=== PATIENT | male | born 1945 | race Caucasian/White ===

== ENCOUNTER → 2020-11-22 13:52 | Outpatient (BNVA) | payer MEDICARE, SELFPAY | PROVIDERS: PCP Family Medicine; Visit Provider Urology | DX: N40.1 Benign prostatic hyperplasia with lower urinary tract symptoms (principal); N39.0 Urinary tract infection, site not specified; N13.8 Other obstructive and reflux uropathy; R33.9 Retention of urine, unspecified | CPT/HCPCS: Q3014 ==

== ENCOUNTER → 2021-06-20 08:34 | Outpatient (BNVA) | payer MEDICARE, SELFPAY | PROVIDERS: PCP Family Medicine; Visit Provider Urology | DX: N40.1 Benign prostatic hyperplasia with lower urinary tract symptoms (principal); N13.8 Other obstructive and reflux uropathy; R33.9 Retention of urine, unspecified; N39.0 Urinary tract infection, site not specified | CPT/HCPCS: 51798; 99212 ==

== ENCOUNTER 2021-07-31 06:49 | Day surgery (SDC) | payer MEDICARE, SELFPAY ==
[2021-07-26 12:55] VITALS: BMI 32.3
[2021-07-27 15:23] VITALS: BMI 30.8
--- NOTE | 2021-07-28 10:21 | HO.ANESPROP2 ---
Documented by User: Bhumi Burns NP 07/28/21 10:21 HPI - Anesthesia Eval Consult details Narrative: 76yo M for Laser Ablation Prostate w/Green Light PMFSH Active Problems Active Problems: All Active Problems (Updated 07/27/21 @ 15:02 by Perla Morales, RN) BPH w urinary obs/LUTS (Acute) Incomplete emptying of bladder due to benign prostatic hyperplasia (Acute) Recurrent UTI (urinary tract infection) (Acute) Past Medical History Medical History Benign prostatic hyperplasia with lower urinary tract symptoms Incomplete emptying of bladder Nocturia Recurrent UTI Weak urinary stream Surgical History Surgical History No history of previous surgery Social History Social History Patient Tobacco Use Status: Never used Tobacco Use of substances other than those prescribed or required for medical reasons: No Are you DNR?: No Advance Directives: No Advance Directives Information Provided: No Advance Directives on File: No Meds Allergies Allergy/AdvReac Type Severity Reaction Status Date / Time No Known Allergies Allergy Verified 07/27/21 15:03 Home Medications Medication Instructions Recorded Confirmed Last Taken Type cefadroxil 500 mg capsule 500 mg PO BID 11/22/20 07/27/21 Unknown History Exam Exam Date and Time: July 28, 2021 1021 Height,Weight and Vital Signs: Height 5 ft 10 in Weight 97.522 kg Assessment and Plan Assessment Anesthesia Assessment: Chart Reviewed Documented by User: Jeni Kendrick MD 07/31/21 08:13 PMFSH Past Medical History Medical History Benign prostatic hyperplasia with lower urinary tract symptoms Incomplete emptying of bladder Nocturia Recurrent UTI Weak urinary stream Surgical History Surgical History No history of previous surgery History of Problems with Anesthesia: No Social History Social History Patient Tobacco Use Status: Never used Tobacco Use of substances other than those prescribed or required for medical reasons: No Are you DNR?: No Advance Directives: No Advance Directives Information Provided: No Advance Directives on File: No Meds Allergies Allergy/AdvReac Type Severity Reaction Status Date / Time No Known Allergies Allergy Verified 07/27/21 15:03 Home Medications Medication Instructions Recorded Confirmed Last Taken Type cefadroxil 500 mg capsule 500 mg PO BID 11/22/20 07/27/21 Unknown History Exam Airway Mallampati Class: III TM Dist: >3cm Neck ROM: Full Loose/Missing/Broken Teeth: No Heart: RRR Lungs: CTA Assessment and Plan Assessment Anesthesia Assessment: Anesthesia Plan Discussed Final Anesthetic Review History of Problems with Anesthesia: No NPO: Yes ASA Class: II Final Preanesthetic Review: Meds/Allgs Chart Reviewed, Consent Obtained/Reviewed and Anes Risks/Benef Reviewed Patient Risk: Low Procedure Risk: Low Anesthetic Plan Anesthetic Plan: GA Disposition: Standard PACU
[2021-07-31 07:06] VITALS: BP 169/94; PULSE 63; RESP 16; TEMP 36.3; O2SAT 96
[2021-07-31] MEDS: Lactated Ringers 1,000 ML 100 ML IVCONT (07:38)
[2021-07-31] MEDS: levoFLOXacin/D5W 500 MG/100 ML PIGGYBACK 100 MG IV (07:46)
--- NOTE | 2021-07-31 08:08 | MHC.SHP ---
Pre-Procedural Eval Section A Date of Service: 07/31/21 Section B Chief Complaint: prostate hyperplasia Details of Present Illness: laser enculeation of the prostate Relevant Family History (Specify if Yes): No Relevant Social History: None Present Medications: see Short Stay Collaborative assessment Medical History: No relevant PMH History of Previous Operations: No relevant previous surgery Allergies: Allergies Allergy/AdvReac Type Severity Reaction Status Date / Time No Known Allergies Allergy Verified 07/27/21 15:03 Review of Systems Sugical H&P ROS: Negative: Constitution, Cardiovascular, Respiratory, Neurological, Psychiatric, Hem-Onc, Allergic/Immunologic, Gastrointestinal, Genitourinary, Musculoskeletal, Integumentary, Endocrine and Eyes/Ears/Nose/Throat Exam Surgical H&P Exam: Normal: HEENT, Normal: Heart, Normal: Lungs, Normal: Extremities, Normal: Abdomen, Normal: Skin and Normal: Neurological Plan Diagnosis/Plan: Unchanged (greenlight laser enucleation of the prostate) I have reviewed the history and physical and performed a pertinent physical examination on my patient. No changes have occurred unless specified.
[2021-07-31 09:20] VITALS: BP 116/81; PULSE 80; RESP 16; TEMP 36.2; O2SAT 98
--- NOTE | 2021-07-31 09:20 | W.PM.OPN ---
Operative Note Operative Note Date of Service: 07/31/21 Narrative: PreOperative Diagnosis: Bladder outlet obstruction Post Operative Diagnosis: Bladder outlet obstruction Procedure: GreenLight laser enucleation of the prostate 2) - incision of bladder diverticulum neck Surgeon: Dr Alan Saenz Anesthesia: General Indications for procedure: History of bladder outlet obstruction. Treated with alpha-nilam and other medications. Still with symptoms. Focus was placed on development of retrograde examination which is a normal part of this procedure. Procedure: After informed consent was verified the patient was brought to the operating room and placed in a supine position. Anesthesia was administered per protocol. Patient was placed in modified dorsal lithotomy position and prepped and draped in a sterile fashion. Safety pause time-out was confirmed. Antibiotics have been given. Twenty-four [place] laser cystoscope was inserted per urethra. No abnormalities found the anterior posterior urethra. The bladder was filled on both ureteric orifices were seen in normal position away from our area of interest. Using a GreenLight laser settings of 80 w incisions were made at the 5 and 7 o'clock position. They were taken down and then laterally on each side. They were brought from the bladder neck down to the level of the veru. These defined the lateral aspects of the median lobe area. The median lobe was ablated and enucleated tissue removed. Once the median lobe area had been cleaned attention was directed to the lateral lobes. We started with the patient's left lateral lobe. Firstly the 05:00 o'clock groove was further developed. This was moved in the lateral position to undermine the tissue on the lateral side. Focus was then placed on the laser at the 1 o'clock position in developing a secondary groove down to the level of bladder fibers. The intervening tissue between these 2 grooves was removed with a combination of enucleation ablation working from the apex toward the bladder neck. A similar procedure was repeated on the patient's right-hand side. 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 This was much larger than had been suggested in the office cystoscopy. Incisions were made at the 12, 9 and 3 o'clock position in order to relax the neck of the diverticulum. This was done with setting of 40. When this was completed debris and pieces of prostate removed from the bladder. Both ureteric orifices were reviewed again in shown to be patent in away from any areas of energy damage. The apical area was reviewed in any stray ooze was controlled. A 22 [place] 30 cc balloon Santos catheter was placed over stylet into the bladder. Clear efflux was obtained. 30 cc was placed in the balloon and gentle traction was placed. A snap was used to hold tension once the patient will be moved and transported. Once transportation its finish this novel be removed. A belladonna and opiate suppository was placed for postprocedure pain management. He tolerated procedure well was extubated in the operating and transferred in a stable condition to the recovery area. Pathology: Prostate tissue Drains: Santos catheter
[2021-07-31 09:25] VITALS: BP 131/78; PULSE 79; RESP 16; O2SAT 98
[2021-07-31 09:30] VITALS: BP 132/79; PULSE 84; RESP 16; O2SAT 95
[2021-07-31 09:35] VITALS: BP 129/75; PULSE 74; RESP 16; O2SAT 96
[2021-07-31 09:50] VITALS: BP 130/74; PULSE 75; RESP 18; TEMP 36.7; O2SAT 96
== END 2021-07-31 10:43 | disposition home or self-care (01) ==
PROVIDERS: PCP Family Medicine; Visit Provider Urology
PROC: (CPT 52648; principal; 2021-07-31 08:40)
DX: N40.1 Benign prostatic hyperplasia with lower urinary tract symptoms (principal); N13.8 Other obstructive and reflux uropathy; R33.8 Other retention of urine
CPT/HCPCS: 52649; 88305; J1100; J1956; J2405; J3010

== ENCOUNTER → 2021-08-03 09:36 | Outpatient (BNVA) | payer MEDICARE, SELFPAY | PROVIDERS: PCP Family Medicine; Visit Provider Urology | DX: N13.8 Other obstructive and reflux uropathy (principal) | CPT/HCPCS: 51700 ==

== ENCOUNTER 2021-08-13 06:53 | Emergency (ER) | payer MEDICARE, SELFPAY ==
[2021-08-13 06:56] VITALS: BP 146/104; PULSE 95; RESP 18; TEMP 36.7; O2SAT 95; BMI 30.8
--- NOTE | 2021-08-13 07:59 | ED.MALEGU ---
HPI - Male Genitourinary General Chief complaint: Urogenital-Male Stated complaint: blood in urine Time Seen by Provider: 08/13/21 07:48 Source: patient, family and old records reviewed History of Present Illness HPI Narrative: Patient is 13 days postop from prostate surgery. He states last night he had several episodes of dark hematuria. He states he passed several large clots. He does not feel like he is retaining urine however. Prior to last night he had occasional mild pink tinged urine. He is on Bactrim for a urinary tract infection. He denies other symptoms. No nausea vomiting diarrhea or constipation No dysuria No fevers or chills No flank pain No history of hematuria prior to this. Related Data Home Medications Medication Instructions Recorded Confirmed cefadroxil 500 mg capsule 500 mg PO BID 11/22/20 07/27/21 Previous Rx's Medication Instructions Recorded finasteride 5 mg tablet 5 mg PO DAILY 90 Days #90 tab 06/07/21 tramadol 50 mg tablet 50 mg PO Q6H PRN #14 tab 07/31/21 tamsulosin 0.4 mg capsule 0.4 mg PO DAILY 90 Days #90 cap 08/03/21 sulfamethoxazole 400 1 tab PO DAILY #10 tab 08/11/21 mg-trimethoprim 80 mg tablet (Bactrim) Allergies Allergy/AdvReac Type Severity Reaction Status Date / Time No Known Allergies Allergy Verified 08/13/21 06:56 Review of Systems Constitutional: Constitutional: Denies fatigue and Denies fever(s) Cardiovascular: Cardiovascular: Denies chest pain, Denies rapid heart rate and Denies dyspnea Respiratory: Respiratory: Denies dyspnea Gastrointestinal: Comments: No nausea vomiting diarrhea or constipation Genitourinary: Comments: Hematuria Neurologic: Comments: No weakness numbness or paresthesias Endocrine: Endocrine: Denies fatigue PMFSH Past Medical History Medical History Benign prostatic hyperplasia with lower urinary tract symptoms Incomplete emptying of bladder Nocturia Recurrent UTI Weak urinary stream Surgical History No history of previous surgery Social History Social History Patient Tobacco Use Status: Never used Tobacco Advance Directives: No Physical Exam Vital Signs: Vital Signs: Last Vital Signs Temp 97.9 F 08/13/21 10:54 Pulse 68 08/13/21 11:29 Resp 18 08/13/21 11:29 BP 170/88 H 08/13/21 11:29 Pulse Ox 97 08/13/21 11:29 Body Mass Index 30.8 Const: Other: Awake in no acute distress Resp: Other: Clear and equal bilaterally without wheezes rales or rhonchi. No dyspnea Cardio: Other: Regular rate and rhythm without murmurs rubs or gallops GI: Other: Soft nontender nondistended. No suprapubic discomfort. Skin: Other: Warm pink and dry Neuro: Other: Awake and alert no acute distress Course Course Course Narrative: Postop hematuria Anemia Urinary tract infection Urinary retention 9:36 a.m.. Workup shows approximately 260 cc of urine postvoid residual. Still with grossly bloody urine. Hemoglobin is 13. Urinalysis shows minimal white cells. Results communicated to Dr. Saenz, his urologist who recommends bladder irrigation until clear. 1:04 p.m.. Urine has cleared well. Stable for discharge home MDM - Male Genitourinary Lab Data Result diagrams: 08/13/21 08:48 08/13/21 08:48 Labs: Lab Results 08/13/21 08/13/21 08/13/21 Range/Units 08:25 08:48 08:48 WBC 8.7 (4.8-10.8) X10*3/uL RBC 4.65 (4.60-5.80) X10*6/uL Hgb 13.6 L (14.0-18.0) g/dl Hct 41.1 L (42-52) % MCV 88.4 (80-98) fL MCH 29.2 (27.0-33.0) pg MCHC 33.1 (31.0-36.0) g/dl RDW 13.5 (11.0-16.0) % Plt Count 217 (160-400) X10*3/uL MPV 8.4 L (9.4-12.4) fL Immature Gran % (Auto) 0.3 (0.0-0.4) % Neut % (Auto) 73.3 H (45-73) % Lymph % (Auto) 18.3 L (20-40) % [place] % (Auto) 7.2 (2-11) % Eos % (Auto) 0.8 (0-4) % Baso % (Auto) 0.1 (0-2) % Lymph # (Auto) 1.6 (1.2-4.9) X10*3/uL [place] # (Auto) 0.6 (0.1-1.2) X10*3/uL Eos # (Auto) 0.1 (0.0-0.4) X10*3/uL Baso # (Auto) 0.0 (0.0-0.2) X10*3/uL Abs Immat Gran (auto) 0.03 (0.00-0.03) X10*3/uL Absolute Neuts (auto) 6.4 (2.0-8.3) X10*3/uL Absolute Nucleated RBC 0.000 (0.0-0.012) X10*3/uL Nucleated RBC % (auto) 0.0 (0.0-0.2) /100WBC PT (9.9-13.0) SEC INR (0.9-1.1) Sodium 141 (135-145) mmol/L Potassium 4.8 (3.3-5.1) mmol/L Chloride 111 H (96-108) mmol/L Carbon Dioxide 24 (22-29) mmol/L Anion Gap 11 L (12-20) BUN 12 (9-16) mg/dL Creatinine 1.14 (0.5-1.4) mg/dL Estim Creat Clear Calc 66.5 Estimated GFR > 60 Random Glucose 124 H (60-115) mg/dL Calcium 9.3 (8.4-10.2) mg/dL Total Bilirubin 0.5 (0.0-1.0) mg/dL AST 11 (5-37) U/L ALT 13 (0-40) U/L Alkaline Phosphatase 79 (39-117) U/L Total Protein 6.5 (6.5-8.0) g/dL Albumin 3.9 (3.5-5.0) g/dL Urine Color BROWN Urine Appearance TURBID Urine pH 6.5 (5.0-8.0) Ur Specific [place] 1.020 (1.005-1.025) Urine Protein SEE NOTE (NEG-TRACE) MG/DL Urine Glucose (UA) NEG (NEG) MG/DL Urine Ketones SEE NOTE (NEG) MG/DL Urine Blood 3+ H (NEG) Urine Nitrite SEE NOTE (NEG) Ur Leukocyte Esterase 1+ H (NEG) Urine RBC TNTC H (0) /HPF Urine WBC 5-9 H (0-4) /HPF Ur Squamous Epith Cells NONE /LPF Urine Bacteria NONE /LPF 08/13/21 Range/Units 08:48 WBC (4.8-10.8) X10*3/uL RBC (4.60-5.80) X10*6/uL Hgb (14.0-18.0) g/dl Hct (42-52) % MCV (80-98) fL MCH (27.0-33.0) pg MCHC (31.0-36.0) g/dl RDW (11.0-16.0) % Plt Count (160-400) X10*3/uL MPV (9.4-12.4) fL Immature Gran % (Auto) (0.0-0.4) % Neut % (Auto) (45-73) % Lymph % (Auto) (20-40) % [place] % (Auto) (2-11) % Eos % (Auto) (0-4) % Baso % (Auto) (0-2) % Lymph # (Auto) (1.2-4.9) X10*3/uL [place] # (Auto) (0.1-1.2) X10*3/uL Eos # (Auto) (0.0-0.4) X10*3/uL Baso # (Auto) (0.0-0.2) X10*3/uL Abs Immat Gran (auto) (0.00-0.03) X10*3/uL Absolute Neuts (auto) (2.0-8.3) X10*3/uL Absolute Nucleated RBC (0.0-0.012) X10*3/uL Nucleated RBC % (auto) (0.0-0.2) /100WBC PT 13.4 H (9.9-13.0) SEC INR 1.2 H (0.9-1.1) Sodium (135-145) mmol/L Potassium (3.3-5.1) mmol/L Chloride (96-108) mmol/L Carbon Dioxide (22-29) mmol/L Anion Gap (12-20) BUN (9-16) mg/dL Creatinine (0.5-1.4) mg/dL Estim Creat Clear Calc Estimated GFR Random Glucose (60-115) mg/dL Calcium (8.4-10.2) mg/dL Total Bilirubin (0.0-1.0) mg/dL AST (5-37) U/L ALT (0-40) U/L Alkaline Phosphatase (39-117) U/L Total Protein (6.5-8.0) g/dL Albumin (3.5-5.0) g/dL Urine Color Urine Appearance Urine pH (5.0-8.0) Ur Specific [place] (1.005-1.025) Urine Protein (NEG-TRACE) MG/DL Urine Glucose (UA) (NEG) MG/DL Urine Ketones (NEG) MG/DL Urine Blood (NEG) Urine Nitrite (NEG) Ur Leukocyte Esterase (NEG) Urine RBC (0) /HPF Urine WBC (0-4) /HPF Ur Squamous Epith Cells /LPF Urine Bacteria /LPF Discharge Plan Discharge Clinical Impression: Hematuria Qualifiers: Hematuria type: gross Qualified Code(s): R31.0 - Gross hematuria Patient Disposition: Home, Self-Care Instructions: Hematuria (ED) Additional Instructions: Follow-up with Dr. Saenz Prescriptions: No Action finasteride 5 mg tablet 5 mg PO DAILY 90 Days Qty: 90 RF: 1 sulfamethoxazole-trimethoprim [Bactrim] 400-80 mg tablet 1 tab PO DAILY Qty: 10 RF: 0 tramadol 50 mg tablet 50 mg PO Q6H PRN (Reason: pain (scale score 4-6)) Qty: 14 RF: 0 cefadroxil 500 mg capsule 500 mg PO BID RF: 0 tamsulosin 0.4 mg capsule 0.4 mg PO DAILY 90 Days Qty: 90 RF: 3
[2021-08-13 08:40] LABS: Appearance Urine TURBID; Color Urine BROWN; Glucose Urine UA NEG (NEG); Leukocyte Esterase Urine 1+ (NEG); PH 6.5 (5.0-8.0); UACC Culture Trigger YES; Urine Blood 3+ (NEG)
[2021-08-13 08:44] LABS: RBC Urine TNTC /HPF (0)
[2021-08-13 08:58] LABS: MANUAL DIFF FLAG NO
[2021-08-13 09:00] LABS: Basophils Percent Auto 0.1 % (0-2); Eosinophils Absolute Auto 0.1 X10*3/uL (0.0-0.4); Eosinophils Percent Auto 0.8 % (0-4); Hematocrit 41.1 % (42-52); Hemoglobin 13.6 g/dl (14.0-18.0); Imm Gran Abs Auto 0.03 X10*3/uL (0.00-0.03); Imm Gran Pct Auto 0.3 % (0.0-0.4); Lymphocytes Absolute Auto 1.6 X10*3/uL (1.2-4.9); Lymphocytes Percent Auto 18.3 % (20-40); Mean Corpuscular HGB Conc 33.1 g/dl (31.0-36.0); Mean Corpuscular Hemoglobin 29.2 pg (27.0-33.0); Mean Corpuscular Volume 88.4 fL (80-98); Mean Platelet Volume 8.4 fL (9.4-12.4); Monocytes Absolute Auto 0.6 X10*3/uL (0.1-1.2); Monocytes Percent Auto 7.2 % (2-11); Neutrophils Absolute Auto 6.4 X10*3/uL (2.0-8.3); Neutrophils Percent Auto 73.3 % (45-73); Platelet Count 217 X10*3/uL (160-400); Red Blood Count 4.65 X10*6/uL (4.60-5.80); Red Cell Distribution Width 13.5 % (11.0-16.0); White Blood Count 8.7 X10*3/uL (4.8-10.8)
[2021-08-13 09:01] LABS: INTERNATIONAL NORM RATIO 1.2 (0.9-1.1); Prothrombin Time 13.4 SEC (9.9-13.0)
[2021-08-13 09:16] LABS: Alanine Aminotransferase 13 U/L (0-40); Albumin Level 3.9 g/dL (3.5-5.0); Alkaline Phosphatase 79 U/L (39-117); Anion Gap 11 (12-20); Aspartate Amino Transferase 11 U/L (5-37); Bilirubin Total 0.5 mg/dL (0.0-1.0); Blood Urea Nitrogen 12 mg/dL (9-16); Calcium 9.3 mg/dL (8.4-10.2); Carbon Dioxide 24 mmol/L (22-29); Chloride 111 mmol/L (96-108); Creatinine Clr Calc Pharmacy 66.5; Estimated Glomerular Filt Rate > 60; Glucose Random 124 mg/dL (60-115); Potassium 4.8 mmol/L (3.3-5.1); Sodium 141 mmol/L (135-145); Total Protein 6.5 g/dL (6.5-8.0)
[2021-08-13 10:54] VITALS: BP 171/91; PULSE 63; RESP 18; TEMP 36.6; O2SAT 96
[2021-08-13] MEDS: Lidocaine HCl 2 % Urojet 10 ML JEL.PF.APP TOPICAL (11:27)
[2021-08-13 11:29] VITALS: BP 170/88; PULSE 68; RESP 18; O2SAT 97
[2021-08-13 12:00] VITALS: BP 172/118; PULSE 58; RESP 158; O2SAT 98
[2021-08-13 13:53] VITALS: BP 161/101; PULSE 61; RESP 16; O2SAT 97
== END 2021-08-13 15:19 | disposition home or self-care (01) ==
PROVIDERS: Emergency Provider Emergency Medicine; PCP Family Medicine
DX: R31.0 Gross hematuria (principal); N39.0 Urinary tract infection, site not specified; Z98.890 Other specified postprocedural states
CPT/HCPCS: 36415; 51798; 80053; 81001; 85025; 85610; 87086; 99284

== ENCOUNTER 2021-09-19 08:47 | Outpatient (REF) | payer MEDICARE, SELFPAY | END 2021-09-19 08:48 | disposition home or self-care (01) | LOC: CF 08:47 | PROVIDERS: Visit Provider Urology | DX: N40.1 Benign prostatic hyperplasia with lower urinary tract symptoms (principal); N13.8 Other obstructive and reflux uropathy; N39.0 Urinary tract infection, site not specified | CPT/HCPCS: 51798; 87086; 99212 ==

== ENCOUNTER 2021-12-26 08:47 | Outpatient (REF) | payer MEDICARE, SELFPAY | END 2021-12-26 08:48 | disposition home or self-care (01) | LOC: HO.LAB 08:47 | PROVIDERS: PCP Family Medicine; Visit Provider Urology | DX: N39.0 Urinary tract infection, site not specified (principal); N40.1 Benign prostatic hyperplasia with lower urinary tract symptoms; N13.8 Other obstructive and reflux uropathy | CPT/HCPCS: 52000; 87086; 99212 ==

== ENCOUNTER 2022-01-24 09:57 | Outpatient (REF) | payer MEDICARE, SELFPAY ==
[2022-01-24 10:35] LABS: Appearance Urine HAZY; Color Urine YELLOW; Glucose Urine UA NEG (NEG); Leukocyte Esterase Urine 3+ (NEG); Nitrite Urine NEG (NEG); Urine Blood 2+ (NEG); Urine Ketones NEG (NEG); Urine Protein NEG (NEG-TRACE)
[2022-01-24 11:07] LABS: WBC Urine TNTC /HPF (0-4)
[2022-01-24 11:08] LABS: Bacteria Urine 2+ /LPF
== END 2022-01-24 09:58 | disposition home or self-care (01) ==
LOC: HO.LAB 09:57
PROVIDERS: Visit Provider Urology
DX: N39.0 Urinary tract infection, site not specified (principal)
CPT/HCPCS: 81001; 87086

== ENCOUNTER → 2022-06-27 08:23 | Outpatient (BNVA) | payer MEDICARE, SELFPAY | PROVIDERS: PCP Family Medicine; Visit Provider Urology | DX: N40.1 Benign prostatic hyperplasia with lower urinary tract symptoms (principal); R33.9 Retention of urine, unspecified; N13.8 Other obstructive and reflux uropathy; N52.9 Male erectile dysfunction, unspecified | CPT/HCPCS: 51798; 99212 ==

== ENCOUNTER 2023-08-09 09:30 | Outpatient (AMB) | payer MEDICARE, SELFPAY ==
--- NOTE | 2023-08-09 09:49 | MHC.OFFVIS ---
Intake Intake Visit Reasons: 1Y PSA(Erectile Dys/BPH)(set) Intake Note: Patient is Present for Follow Up PSA/PVR Urology Medication: Finasteride, Tadalafil, Tamsulosin Antibiotic Allergies: None Blood Thinners: None Pharmacy: [facility] PVR: 0 Allergies No Known Allergies Allergy (Verified 08/09/23 09:54) Medication List - Last Reconciled 08/09/23 by Alan Saenz MD cefadroxil 500 mg PO BID finasteride 5 mg PO DAILY 90 days sulfamethoxazole-trimethoprim 400-80 mg (Bactrim) 1 tab PO DAILY sulfamethoxazole-trimethoprim 800-160 mg (Bactrim DS) 1 tab PO BID 7 days tadalafil 20 mg PO DAILY PRN 90 days tamsulosin 0.4 mg PO DAILY 90 days tramadol 50 mg PO Q6H PRN HPI HPI Comments History of Present Illness Details Dillon is a very pleasant male. He is a patient of Dr Chambers. He is seen for the following urologic conditions - recurring UTI - incomplete bladder emptying - bladder diverticula - lower urinary tract symptoms - erectile dysfunction PVR 0 cc Empties fluid double voiding PSA 07/27 2.7 Does get some reflux after use of tadalafil but manageable Lower Urinary Tract Symptoms: With incomplete bladder emptying secondary to diverticular and recurring UTI Current visit is for further evaluation of, lower urinary tract symptoms, predominate obstructive symptoms. Current treatment includes , alpha nilam, 5-AR - 3 years. Prostate Procedure - 08/24 GreenLight laser prostatectomy with diverticula incision Prostate Symptom Score 2/20 , Moderate (9-19), Bother 2. Symptoms include 3/20 , incomplete emptying, weak stream, nocturia (>2), and are stable. Results from testing include renal/bladder us Yes date 02/17/2020 PVR 150 prostate size 55 Erectile dysfunction Responds well to on demand tadalafil PFSH Medical History Recurrent UTI Incomplete emptying of bladder Weak urinary stream Benign prostatic hyperplasia with lower urinary tract symptoms Nocturia Surgical History No history of previous surgery Social History Patient Tobacco Use Status: Never used Tobacco Review of Systems Const Denies chills and Denies fever(s) Card Reports no additional complaints and Denies syncope Resp Denies cough GI Denies abdominal pain and Denies heartburn Reports as per HPI and Denies change in libido Neuro Denies syncope Psych Denies change in libido Endo Denies change in libido Physical Exam Const General: cooperative, healthy appearing, comfortable and no acute distress Orientation/consciousness: patient oriented x3 HEENT Face and sinus: Yes normal facial exam Mouth: moist mucous membranes Neck Neck: Yes normal visual inspection, Yes full ROM and Yes trachea midline Chest Chest palpation & inspection: normal inspection of the chest Resp Effort & Inspection: normal respiratory effort, able to speak in complete sentences and no respiratory distress GI Inspection: Yes normal to inspection Back/Spine/Pelvis Cervical Spine: normal cervical lordosis Thoracic/Lumbar Spine: thoracic and lumbar spine normal to inspection Skin General skin exam: no rashes or lesions noted Neuro General: patient oriented x3, gait normal, tone normal and moves all extremities Extrem General: Yes normal to inspection and Yes capillary refill normal Office Procedures Post Void Residual Post Residual Void Post Void Residual (PVR): 0 11711-Ccyd Void Residual by ultrasound Results AMB Urinalysis, Automated UA Leukoctes 125 [place]/uL Last Edit by LORIN Beal on 08/09/23 10:01 UA Nitrite Negative Last Edit by Bethany Fang Brooke on 08/09/23 10:01 UA Urobilinogen 0.2 mg/dL Last Edit by Bethany Fang [facility] on 08/09/23 10:01 UA Protein 30 mg/dL Last Edit by Bethany Fang [facility] on 08/09/23 10:01 UA pH 6.0 Last Edit by Bethany Fang [facility] on 08/09/23 10:01 UA Blood 80 [place]/uL Last Edit by Bethany Fang Brooke on 08/09/23 10:01 UA Specific [place] 1.020 Last Edit by LORIN Beal on 08/09/23 10:01 UA Ketone Negative Last Edit by LORIN Beal on 08/09/23 10:01 UA Bilirubin 0 mg/dL Last Edit by Bethany Fang [facility] on 08/09/23 10:01 UA Glucose 0 mg/dL Last Edit by LORIN Beal on 08/09/23 10:01 Results Reviewed Results Reviewed: Laboratory Last Values Urine pH (Auto) 6.0 08/09/23 10:00 Specific [place] (Auto) 1.020 08/09/23 10:00 Urine Protein (Auto) 30 mg/dL 08/09/23 10:00 Glucose (UA)(Auto) 0 mg/dL 08/09/23 10:00 Urine Ketones (Auto) Negative 08/09/23 10:00 Urine Blood (Auto) 80 [place]/uL 08/09/23 10:00 Urine Nitrite (Auto) Negative 08/09/23 10:00 Urine Bilirubin (Auto) 0 mg/dL 08/09/23 10:00 Urine Urobilinogen (Auto) 0.2 mg/dL 08/09/23 10:00 Leukocyte Esterase (Auto) 125 [place]/uL 08/09/23 10:00 Assessment & Plan Assessment & Plan (1) Erectile dysfunction: Code(s): N52.9 - Male erectile dysfunction, unspecified (2) BPH w urinary obs/LUTS: Code(s): N40.1 - Benign prostatic hyperplasia with lower urinary tract symptoms; N13.8 - Other obstructive and reflux uropathy Plan Twelve month follow-up Orders: Orders AMB Urinalysis Automated Today Z13.9 - Encounter for screening, unspecified AMB Post Void Residual by ultrasound Today N13.8 - Other obstructive and reflux uropathy, N40.1 - Benign prostatic hyperplasia with lower urinary tract symptoms Prostate Specific Antigen 364 Days N13.8 - Other obstructive and reflux uropathy, N40.1 - Benign prostatic hyperplasia with lower urinary tract symptoms Medications: Discontinued finasteride Discontinued Reason: Patient Completed Course 5 mg PO DAILY 90 days 90 tabs 1RF tamsulosin Discontinued Reason: Patient Completed Course 0.4 mg PO DAILY 90 days 90 caps 3RF Patient Instructions: Imaging studies, laboratory and physical exam results were discussed and reviewed in detail. No major barriers to patient understanding were identified. An opportunity to ask questions regarding the treatment plan was provided. All questions were answered. The patient expressed understanding and agreement with the above treatment plan. The patient is aware they should contact our office by phone for worsening of their current condition or the appearance of new urologic symptoms. Compliance is encouraged with any medications and followup testing that is ordered. It is a privilege to participate in the urologic care of your patient. If you have any questions or concerns regarding treatment for the above conditions, or other urologic issues, please do not hesitate to contact me. The office telephone contact is [phone]. This note is constructed using voice recognition software. While every effort has been made to ensure accuracy transcription coordinator errors may have been included. Yours sincerely, Dr Alan Saenz MD, [facility] - Urology Providers of Expert, Compassionate Care for the Genitourinary System Coding Level of Care Code Est Pt Level 4 (88474) Diagnoses Erectile dysfunction N52.9 BPH w urinary obs/LUTS N40.1; N13.8 CPT Codes Post Residual Void - PVR CPT Code: 13163-Bmqs Void Residual by ultrasound ([id number])
== END 2023-08-09 10:23 | disposition home or self-care (01) ==
PROVIDERS: PCP Family Medicine; Visit Provider Urology
DX: N52.9 Male erectile dysfunction, unspecified (principal); N40.1 Benign prostatic hyperplasia with lower urinary tract symptoms; N13.8 Other obstructive and reflux uropathy; Z13.9 Encounter for screening, unspecified
CPT/HCPCS: 99214

== ENCOUNTER → 2023-08-09 09:30 | Outpatient (BNVA) | payer MEDICARE, SELFPAY | PROVIDERS: Visit Provider Urology | DX: N40.1 Benign prostatic hyperplasia with lower urinary tract symptoms (principal); N13.8 Other obstructive and reflux uropathy; N52.9 Male erectile dysfunction, unspecified | CPT/HCPCS: 51798; 81003; 99212 ==

== ENCOUNTER 2024-08-25 08:48 | Outpatient (AMB) | payer MEDICARE, SELFPAY ==
--- NOTE | 2024-08-25 08:52 | MHC.OFFVIS ---
Intake Visit Reasons: 1Y PVR/PSA(SET) Intake Note: Patient is Present for 1Y Follow Up PSA/PVR Urology Medication:Tadalafil BACTRIM Antibiotic Allergies: None Blood Thinners: None PVR: 0 TODAY'S PVR: 22ML'S Senior Db2 Systems Programmer Required: No Allergies No Known Allergies Allergy (Verified 08/25/24 08:54) Medication List - Last Reconciled 08/25/24 by Alan Saenz MD cefadroxil 500 mg PO BID tadalafil 20 mg PO ONCE PRN 30 days tramadol 50 mg PO Q6H PRN HPI Comments Details: Dillon is a very pleasant male. He is a patient of Dr Chambers. He is seen for the following urologic conditions - recurring UTI - incomplete bladder emptying - bladder diverticula - lower urinary tract symptoms - erectile dysfunction Yearly follow-up PVR 22 cc PSA 07/27 2.7, 07/28 2.5 Does get some reflux after use of tadalafil but manageable Helps assist obtain but not maintain erection Interested in penile constriction band Lower Urinary Tract Symptoms: With incomplete bladder emptying secondary to diverticular and recurring UTI Current visit is for further evaluation of, lower urinary tract symptoms, predominate obstructive symptoms. Current treatment includes , alpha nilam, 5-AR - 3 years. Prostate Procedure - 08/24 GreenLight laser prostatectomy with diverticula incision Prostate Symptom Score 2/20 , Moderate (9-19), Bother 2. Symptoms include 3/20 , incomplete emptying, weak stream, nocturia (>2), and are stable. Results from testing include renal/bladder us Yes date 02/17/2020 PVR 150 prostate size 55 Erectile dysfunction Responds well to on demand tadalafil PFSH Medical History Recurrent UTI Incomplete emptying of bladder Weak urinary stream Benign prostatic hyperplasia with lower urinary tract symptoms Nocturia Surgical History No history of previous surgery Social History Patient Tobacco Use Status: Never used Tobacco Review of Systems Const Denies chills and Denies fever(s) Card Reports no additional complaints and Denies syncope Resp Denies cough GI Denies abdominal pain and Denies heartburn Reports as per HPI and Denies change in libido Neuro Denies syncope Psych Denies change in libido Endo Denies change in libido Physical Exam Const General: cooperative, healthy appearing, comfortable and no acute distress Orientation/consciousness: patient oriented x3 HEENT Face and sinus: Yes normal facial exam Mouth: moist mucous membranes Neck Neck: Yes normal visual inspection, Yes full ROM and Yes trachea midline Chest Chest palpation & inspection: normal inspection of the chest Resp Effort & Inspection: normal respiratory effort, able to speak in complete sentences and no respiratory distress GI Inspection: Yes normal to inspection Back/Spine/Pelvis Cervical Spine: normal cervical lordosis Thoracic/Lumbar Spine: thoracic and lumbar spine normal to inspection Skin General skin exam: no rashes or lesions noted Neuro General: patient oriented x3, gait normal, tone normal and moves all extremities Extrem General: Yes normal to inspection and Yes capillary refill normal Office Procedures Post Void Residual Post Residual Void Post Void Residual (PVR): 23258-Xobm Void Residual by ultrasound Results AMB Urinalysis, Automated UA Leukoctes 0 Americo/uL Last Edit by ARSH Yee on 08/25/24 09:32 UA Nitrite Negative Last Edit by ARSH Yee on 08/25/24 09:32 UA Urobilinogen 0.2 mg/dL Last Edit by ARSH Yee on 08/25/24 09:32 UA Protein 15 mg/dL Last Edit by ARSH Yee on 08/25/24 09:32 UA pH 6.0 Last Edit by ARSH Yee on 08/25/24 09:32 UA Blood 10 Galileo/uL Last Edit by ARSH Yee on 08/25/24 09:32 UA Specific [place] 1.020 Last Edit by ARSH Yee on 08/25/24 09:32 UA Ketone Negative Last Edit by ARSH Yee on 08/25/24 09:32 UA Bilirubin 0 mg/dL Last Edit by ARSH Yee on 08/25/24 09:32 UA Glucose 0 mg/dL Last Edit by ARSH Yee on 08/25/24 09:32 Results Reviewed Results Reviewed: Laboratory Last Values Urine pH (Auto) 6.0 08/25/24 09:32 Specific [place] (Auto) 1.020 08/25/24 09:32 Urine Protein (Auto) 15 mg/dL 08/25/24 09:32 Glucose (UA)(Auto) 0 mg/dL 08/25/24 09:32 Urine Ketones (Auto) Negative 08/25/24 09:32 Urine Blood (Auto) 10 Galileo/uL 08/25/24 09:32 Urine Nitrite (Auto) Negative 08/25/24 09:32 Urine Bilirubin (Auto) 0 mg/dL 08/25/24 09:32 Urine Urobilinogen (Auto) 0.2 mg/dL 08/25/24 09:32 Leukocyte Esterase (Auto) 0 Americo/uL 08/25/24 09:32 Assessment & Plan Assessment & Plan (1) Erectile dysfunction: Code(s): N52.9 - Male erectile dysfunction, unspecified Category: Medical (2) BPH w urinary obs/LUTS: Code(s): N40.1 - Benign prostatic hyperplasia with lower urinary tract symptoms; N13.8 - Other obstructive and reflux uropathy Category: Medical Plan Twelve month follow-up Orders: Orders AMB Urinalysis Automated Today Z13.9 - Encounter for screening, unspecified Prostate Specific Antigen 364 Days N52.9 - Male erectile dysfunction, unspecified Patient Instructions: Imaging studies, laboratory and physical exam results were discussed and reviewed in detail. No major barriers to patient understanding were identified. An opportunity to ask questions regarding the treatment plan was provided. All questions were answered. The patient expressed understanding and agreement with the above treatment plan. The patient is aware they should contact our office by phone for worsening of their current condition or the appearance of new urologic symptoms. Compliance is encouraged with any medications and followup testing that is ordered. It is a privilege to participate in the urologic care of your patient. If you have any questions or concerns regarding treatment for the above conditions, or other urologic issues, please do not hesitate to contact me. The office telephone contact is [phone]. This note is constructed using voice recognition software. While every effort has been made to ensure accuracy pocket operator errors may have been included. Yours sincerely, Dr Alan Saenz MD, [facility] - Urology Providers of Expert, Compassionate Care for the Genitourinary System Coding Level of Care Code Est Pt Level 4 (38255) Diagnoses Erectile dysfunction N52.9 BPH w urinary obs/LUTS N40.1; N13.8 CPT Codes Post Residual Void - PVR CPT Code: 29325-Jykw Void Residual by ultrasound ([id number])
== END 2024-08-25 10:04 | disposition home or self-care (01) ==
PROVIDERS: PCP Family Medicine; Visit Provider Urology
DX: N52.9 Male erectile dysfunction, unspecified (principal); N40.1 Benign prostatic hyperplasia with lower urinary tract symptoms; N13.8 Other obstructive and reflux uropathy; Z13.9 Encounter for screening, unspecified
CPT/HCPCS: 99214

== ENCOUNTER → 2024-08-25 08:48 | Outpatient (BNVA) | payer MEDICARE, SELFPAY | PROVIDERS: PCP Family Medicine; Visit Provider Urology | DX: N40.1 Benign prostatic hyperplasia with lower urinary tract symptoms (principal); N13.8 Other obstructive and reflux uropathy; N52.9 Male erectile dysfunction, unspecified | CPT/HCPCS: 51798; 81003; 99212 ==

== ENCOUNTER 2025-08-25 08:16 | Outpatient (REF) | payer MEDICARE, SELFPAY | END 2025-08-25 08:17 | disposition home or self-care (01) | LOC: HO.LAB 08:16 | PROVIDERS: PCP Family Medicine; Visit Provider Urology | DX: N40.1 Benign prostatic hyperplasia with lower urinary tract symptoms (principal); N13.8 Other obstructive and reflux uropathy; R33.8 Other retention of urine; A49.9 Bacterial infection, unspecified; N39.0 Urinary tract infection, site not specified; Z13.89 Encounter for screening for other disorder | CPT/HCPCS: 51798; 81003; 87086; 99212 ==

== ENCOUNTER 2025-08-25 08:16 | Outpatient (AMB) | payer MEDICARE, SELFPAY ==
--- NOTE | 2025-08-25 08:16 | MHC.OFFVIS ---
Intake Visit Reasons: 1y/PSA/PVR Intake Note: Patient is Present for 1Y Follow Up PSA/PVR Urology Medication:Tadalafil Blood Thinners: None labs done 08/12/25: PSA 3.21 TODAY'S PVR: 110mls Machine Taper Required: No Accompanied by: Self / Same As Patient Allergies No Known Allergies Allergy (Verified 08/25/25 08:17) HPI Comments Details: Dillon is a very pleasant male. He is a patient of Dr Chambers. 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 Current treatment includes , alpha nilam, 5-AR - 3 years. Prostate Procedure - 08/24 GreenLight laser prostatectomy with diverticula incision Prostate Symptom Score 2/20 , Moderate (9-19), Bother 2. Symptoms include 3/20 , incomplete emptying, weak stream, nocturia (>2), and are stable. Results from testing include renal/bladder us Yes date 02/17/2020 PVR 150 prostate size 55 Erectile dysfunction Responds well to on demand tadalafil PFSH Medical History Recurrent UTI Incomplete emptying of bladder Weak urinary stream Benign prostatic hyperplasia with lower urinary tract symptoms Nocturia Surgical History No history of previous surgery Social History Patient Tobacco Use Status: Never used Tobacco Review of Systems Const Denies chills and Denies fever(s) Card Reports no additional complaints and Denies syncope Resp Denies cough GI Denies abdominal pain and Denies heartburn Reports as per HPI and Denies change in libido Neuro Denies syncope Psych Denies change in libido Endo Denies change in libido Physical Exam Const General: cooperative, healthy appearing, comfortable and no acute distress Orientation/consciousness: patient oriented x3 HEENT Face and sinus: Yes normal facial exam Mouth: moist mucous membranes Neck Neck: Yes normal visual inspection, Yes full ROM and Yes trachea midline Chest Chest palpation & inspection: normal inspection of the chest Resp Effort & Inspection: normal respiratory effort, able to speak in complete sentences and no respiratory distress GI Inspection: Yes normal to inspection Back/Spine/Pelvis Cervical Spine: normal cervical lordosis Thoracic/Lumbar Spine: thoracic and lumbar spine normal to inspection Skin General skin exam: no rashes or lesions noted Neuro General: patient oriented x3, gait normal, tone normal and moves all extremities Extrem General: Yes normal to inspection and Yes capillary refill normal Office Procedures Post Void Residual Post Residual Void Post Void Residual (PVR): 110 [id number] Void Residual by ultrasound Results AMB Urinalysis, Automated UA Leukoctes 125 Americo/uL Last Edit by ARSH Shipley on 08/25/25 08:29 UA Nitrite Last Edit by ARSH Shipley on 08/25/25 08:29 UA Urobilinogen 0.2 mg/dL Last Edit by ARSH Shipley on 08/25/25 08:29 UA Protein 15 mg/dL Last Edit by ARSH Shipley on 08/25/25 08:29 UA pH 6.0 Last Edit by ARSH Shipley on 08/25/25 08:29 UA Blood 80 Galileo/uL Last Edit by ARSH Shipley on 08/25/25 08:29 UA Specific [place] 1.015 Last Edit by ARSH Shipley on 08/25/25 08:29 UA Ketone Last Edit by ARSH Shipley on 08/25/25 08:29 UA Bilirubin 0 mg/dL Last Edit by ARSH Shipley on 08/25/25 08:29 UA Glucose 0 mg/dL Last Edit by ARSH Shipley on 08/25/25 08:29 Results Reviewed Results Reviewed: Laboratory Last Values Urine pH (Auto) 6.0 08/25/25 08:28 Specific [place] (Auto) 1.015 08/25/25 08:28 Urine Protein (Auto) 15 mg/dL 08/25/25 08:28 Glucose (UA)(Auto) 0 mg/dL 08/25/25 08:28 Urine Blood (Auto) 80 Galileo/uL 08/25/25 08:28 Urine Bilirubin (Auto) 0 mg/dL 08/25/25 08:28 Urine Urobilinogen (Auto) 0.2 mg/dL 08/25/25 08:28 Leukocyte Esterase (Auto) 125 Americo/uL 08/25/25 08:28 Assessment & Plan Assessment & Plan (1) BPH w urinary obs/LUTS: Code(s): N40.1 - Benign prostatic hyperplasia with lower urinary tract symptoms; N13.8 - Other obstructive and reflux uropathy Category: Medical (2) Incomplete emptying of bladder due to benign prostatic hyperplasia: Code(s): N40.1 - Benign prostatic hyperplasia with lower urinary tract symptoms; R33.9 - Retention of urine, unspecified Category: Medical Plan Twelve month follow-up office Orders: Orders AMB Urinalysis Automated Today Z13.9 - Encounter for screening, unspecified Prostate Specific Antigen 12 Months N13.8 - Other obstructive and reflux uropathy, N40.1 - Benign prostatic hyperplasia with lower urinary tract symptoms Urine Culture Today A49.9 - Bacterial infection, unspecified, N39.0 - Urinary tract infection, site not specified AMB Post Void Residual by ultrasound Today N13.8 - Other obstructive and reflux uropathy, N40.1 - Benign prostatic hyperplasia with lower urinary tract symptoms Patient Instructions: This note is constructed using voice recognition software. While every effort has been made to ensure accuracy medical device sales consultant errors may have been included. Imaging studies, laboratory and physical exam results were discussed and reviewed in detail. No major barriers to patient understanding were identified. An opportunity to ask questions regarding the treatment plan was provided. All questions were answered. The patient expressed understanding and agreement with the above treatment plan. The patient is aware they should contact our office by phone for worsening of their current condition or the appearance of new urologic symptoms. Compliance is encouraged with any medications and followup testing that is ordered. It is a privilege to participate in the urologic care of your patient. If you have any questions or concerns regarding treatment for the above conditions, or other urologic issues, please do not hesitate to contact me. The office telephone contact is [phone]. Sincerely, Dr Alan Saenz MD, [facility] - Urology Compassionate Specialist Care for the Genitourinary System Coding Level of Care Code Est Pt Level 4 (54609) Complex EM visit Add On G2211 Diagnoses BPH w urinary obs/LUTS N40.1; N13.8 Incomplete emptying of bladder due to benign prostatic hyperplasia N40.1; R33.9 CPT Codes Post Residual Void - PVR CPT Code: 53738-Tsat Void Residual by ultrasound ([id number])
--- OUTSIDE RECORDS SUMMARY | 2025-08-25 08:24 | XMS_ITS | Encounter Summary ---
Author Organization [facility] Address [address] [place] [address] [place] [phone] Phone Care Team Providers Care Biller Name Role Phone Ford Willis MD Primary Care Provide r Babita Russell DO Primary Care Provider [phone] Radha Chambers MD Primary Care Provider Dasha Rowan MD Primary Care Provider + Dasha Rowan MD Primary Care Provider + Encounter Details Date Type Department Care Team (Latest Contact Info) Description 11/11/2017 Transcribe Orders [facility] Laboratory [address] [address] Micky Morgan MD [address] [place] [address], [address] [address] [email or web address] Benign localized hyperplasia of prostate with urinary retention (Primary Dx) Social History Tobacco Use Types Packs/Day Years Used Date Smoking Tobacco: Never Assessed Sex and Gender Information Value Date Recorded Sex Assigned at Male 01/14/2021 6:38 AM EST Legal Sex Male 10:06 PM EDT Gender Identity Male 01/14/2021 6:38 AM EST Sexual Orientation Straight 01/14/2021 6: 38 AM EST documented as of this encounter Plan of Treatment Upcoming Encounters Date Type Department Care Team (Late st Contact Info) Description 11/23/2025 8:00 AM EST Office Visit [facility] [address] Floor, [address] [place] [address] Elie Garzon MD [address] [place] [address] [email or web address] documented as of this encounter Results * PSA (screening) (11/11/2017 9:10 AM EST) PSA 2.25 0 - 4.00 ng/mL [facility] Blood 11/11/2017 9:10 AM EST 11/11/2017 9:14 AM EST us Micky Morgan MD LAB BLOOD ORDERABLES Final Res ult [facility] [address] [place] [address] documented in this encounter Visit Diagnoses Diagnosis Benign localized hyperplasia of prostate with urinary retention- Primary Benign localized hyperplasia of prostate with urinary obstruction and other lower urinary tract symptoms (LUTS) documented in this encounter Care Teams Biller Relationship Specialty Start Date End Date Ford Willis MD [email or web address] PCP - General 11/07/17 Babita Russell DO [address] [place] [email or web address] PCP - General 11/07/18 03/09/21 Radha Chambers MD [address] [address] [email or web address] PCP - General Family Medicine 03/10/21 04/09/23 Dasha Rowan MD [address] [address] PCP - General Family Medicine 04/10/23 03/21/25 Dasha Rowan MD [address] [place] [id number] PCP - General Family Medicine 03/22/25 documented as of this encounter Additional Source Comments The information contained in this document represents components of the legal health record. It is not the complete legal health record.[facility]
--- OUTSIDE RECORDS SUMMARY | 2025-08-25 08:24 | XMS_ITS | Encounter Summary ---
Author Organization [facility] Address [address] [place] [address] [place] [phone] Phone Care Team Providers Care Data Scientist Name Role Phone Ford Willis MD Primary Care Provide r Babita Russell DO Primary Care Provider [phone] Radha Chambers MD Primary Care Provider Dasha Rowan MD Primary Care Provider + Dasha Rowan MD Primary Care Provider + Encounter Details Date Type Department Care Team (Late st Contact Info) Description 08/11/2018 Ancillary Orders Virtual Department [address] [place] [address] Micky Morgan MD [address] [place] [address], [place] [address] [email or web address] Urinary tract infection without hematuria, site unspecified Social History Tobacco Use Types Packs/Day Years [...] Description 11/23/2025 8:00 AM EST Office Visit [facility] [address] [place] [address] [address] Floor, [address] [place] [address] Elie Garzon MD [address] [place] [address] [email or web address] documented as of this encounter Results * US Kidneys and Bladder (08/19/2018 9:29 AM EDT) Anatomical Region Laterality Modality Abdomen, Kidney Ultrasound 08/19/2018 9:39 AM EDT Impressions 08/19/2018 3:31 PM EDT No hydronephrosis or nephrolithiasis. Significant urinary retention with 83% post residual bladder volume. Large bladder diverticulum. POS - [id number] Edited by: Sheba Riley on 08/19/2018 10:12 AM Narrative 08/19/2018 3:31 PM EDT COMPARISON: None FINDINGS: Kidneys are within normal limits for size measuring 11.4 x 5.6 cm on the right and 12.2 x 6.2 cm on the left. Cortical thickness and echogenicity are within normal limits. No hydronephrosis or shadowing stones. Right lower pole cyst measuring up to 1.7 cm. No left renal lesions. Prevoid bladder volume measures 572 cc and post void measures 474 cc for a 83% post void residual bladder volume. No evidence of an intraluminal mass or stone. Borderline bladder wall thickening with possible trabeculated appearance. Large left posterior bladder diverticulum with a narrow neck. It does not significantly change on pre and post void imaging. Both ureteral jets are visualized. Procedure Note Rodolfo Alanis MD - 08/19/2018 COMPARISON: None FINDINGS: Kidneys are within normal limits for size measuring 11.4 x 5.6 cm on theright and 12.2 x 6.2 cm on the left. Cortical thickness and echogenicityare within normal limits. No hydronephrosis or shadowing stones. Rightlower pole cyst measuring up to 1.7 cm. No left renal lesions. Prevoid bladder volume measures 572 cc and post void measures 474 cc for a83% post void residual bladder volume. No evidence of an intraluminalmass or stone. Borderline bladder wall thickening with possibletrabeculated appearance. Large left posterior bladder diverticulum with anarrow neck. It does not significantly change on pre and post voidimaging. Both ureteral jets are visualized. IMPRESSION: No hydronephrosis or nephrolithiasis. Significant urinary retention with 83% post residual bladder volume.Large bladder diverticulum. POS - [id number] Edited by: Sheba Riley on 08/19/2018 10:12 AM Micky Morgan MD IMG RENAL Final Result documented in this encounter Visit Diagnoses Diagnosis Urinary tract infection without hematuria, site unspecified Urinary tract infection without hematuria, site unspecified documented in this encounter Care Teams Data Scientist Relationship Specialty Start Date End Date Ford Willis MD [email or web address] PCP - General 11/07/17 Babita Russell DO [address] [place] [address] [email or web address] PCP - General 11/07/18 03/09/21 Radha Chambers MD [address] [address] [email or web address] PCP - General Family Medicine 03/10/21 04/09/23 Dasha Rowan MD [address] [address] [email or web address] - General Family Medicine 04/10/23 03/21/25 Dasha Rowan MD [address] [place] [phone] [email or web address] PCP - General Family Medicine 03/22/25 documented as of this encounter Additional Source Comments The information contained in this document represents components of the legal health record. It is not the complete legal health record.[facility]
--- OUTSIDE RECORDS SUMMARY | 2025-08-25 08:24 | XMS_ITS | Clinical Summary ---
Author Organization [facility] Address [address] [place] [address] Care Team Providers Care Alarm Mechanism Adjuster Name Role Phone Dasha Rowan Primary Care Provider [phone] Allergies No known active allergies Medications No known medications Active Problems No known active problems Resolved Problems Problem Noted Date Diagnosed Date Resolved Date Epistaxis, recurrent 11/28/2023 024 Family History Medical History Relation Name Comments No Known Problems Father No Known Problems Mother Relation Name Status Comments Father Mother Social History Tobacco Use Types Packs/Day Years Used Date Smoking Tobacco: Former Cigarettes 1 5 Smokeless Tobacco: Never Tobacco Cessation:Counseling Given: Not Answered Alcohol Use Standard Drinks/Week Comments Not Currently 0 (1 standard drink = 0.6 oz pur e alcohol) Sex and Gender Information Value Date Recorded Sex Assigned at Male 10/31/2023 3:35 PM EST Legal Sex Male 3:22 PM EST Gender Identity Male 10/31/2023 3:35 PM EST Sexual Orientation Straight 11/07/2023 10 :30 AM EST Last Filed Vital Signs Vital Sign Reading Time Taken Comments Blood Pressure 150/89 01/03/2024 11:13 AM EST Pulse 87 01/03/2024 11:13 AM EST Temperature 36.6 C (97.9 F) 11/29/2023 11:56 AM EST Respiratory Rate 18 01/03/2024 11:13 AM EST Oxygen Saturation 98% 01/03/2024 11:13 AM EST Inhaled Oxygen Concentration - - Weight 101.6 kg (224 lb) 11/28/2023 6:10 PM EST Height 177.8 cm (5' 10 ) 11/28/2023 6:10 PM EST Body Mass Index 32.14 11/28/2023 6:10 PM EST Plan of Treatment Health Maintenance Due Date Last Done Comments Hepatitis C Screening 1945 Zoster Vaccines (1 of 2) 1997 DTaP,Tdap,and Td Vaccines (1 - Tdap) 01/05/2020 01/04/2020 Pneumococcal Vaccine: 50+ Ye ars (2 of 2 - PCV20 or PCV21) 01/03/2021 01/04/2020 RSV Vaccine (60+ years old a nd patients) (1 - 1-dose 75+ series) 2022 Alcohol/Substance Use Screening 11/04/2024 Depression Screening and Follow-Up 11/04/2024 Health Care Proxy Review 11/04/2024 Social Drivers of Health Lizabeth ual Screening 11/04/2024 COVID-19 Vaccine (2 - 2024-2 6 season) 2025 01/14/2021 Influenza Vaccine (#1) 2025 08/05/2019 Hepatitis B Vaccines Aged Out No long er eligible based on patient's age to complete this topic Medical Devices Implanted Type Area Network Engineer Device Identifier Shelf Expiration Date Model / Serial / Lot Device Closure Vascular Plug 6fr Angio-Seal Vip - [id number] Implanted:Qty: 1 on 11/22/2023 at [facility] Implant [employer] [id number] / / Sytem Liquid Embolic Presurgical Guillermo 18 Les - [id number] Implanted:Qty: 1 on 11/22/2023 at [facility] Implant [employer] [id number] 07/21/2026 [id number] / / [id number] Particle Embolization 250 Micron-355micron Contour-Pva - [id number] Implanted:Qty: 1 on 11/22/2023 at [facility] Implant [employer] 07/21/2026 [id number] / / Insurance [facility] Advance Directives Documents on File Type Date Recorded Patient Office Services Specialist Expl buddyion Health Care Proxy 11/22/2023 7:54 AM * Full Code (Latest Code Status on File) Date Activated Date Inactivated Comments 11/28/2023 5:46 PM 11/29/2023 12:52 PM * Full Code Date Activated Date Inactivated Comments 11/28/2023 10:10 AM 11/28/2023 5:46 PM Healthcare Agents on File Name Relationship Healthcare Agent Relationship Communication Evangelina Munroe Spouse Health Care Agent Care Teams Alarm Mechanism Adjuster Relationship Specialty Start Date End Date Dasha Rowan [address] [place] [phone] PCP - General Family Medicine 10/31/23
--- OUTSIDE RECORDS SUMMARY | 2025-08-25 08:24 | XMS_ITS | Encounter Summary ---
Author Organization [facility] Address [address] [place] [address] [place] [phone] Phone Care Team Providers Care Gardener Florist Name Role Phone Dasha Rowan MD Primary Care Provider + Dasha Rowan MD Primary Care Provider + Reason for Referral * MRI/CAT Scan - Closed Specialty Diagnoses / Procedures Referred By Contac t Referred To Contact Radiology Diagnoses Chest pain, unspecified type Procedures NC Myocardial Perfusion Exercise Multiple CHG MYOCARDIAL SPECT MULTIPLE STUDIES Dasha Rowan MD Phone: tel: fax: mailto:[email or web address] Referral ID Status Reason Start Date Expiration Date Visits Re quested Visits Authorized [id number] Closed 04/12/2023 05/12/2023 4 4 Encounter Details Date Type Department Care Team (Latest Contact Info) Description 04/12/2023 Transcribe Orders Virtual Department [address] [place] [address] Dasha Rowan MD [address] [place] [address] [phone] [email or web address] Chest pain, unspecified type (Primary Dx) Social History Tobacco Use Types Packs/Day Years Used Date Smoking Tobacco: Former Cigarettes 1 5 1 - 08/04/1968 Smokeless Tobacco: Never Alcohol Use Standard Drinks/Week Comments Not Currently 0 (1 standard drink = 0.6 oz pure alcohol) Sober since 1993, prior alcohol abuse Education Answer Date Recorded Are you interested in more education? Not on heather e 03/01/2023 Are you concerned about learning? Not on file 03/01/2023 No 03/01/2023 No 03/01/2023 Digital Access Answer Date Recorded No 03/27/2023 No 03/27/2023 Reliable internet access at home? Not on file 03/27/2023 Device with a working camera? Not on file Education Answer Date Recorded What is the highest level of school you have completed or the highest degree you have received? Associate degree: occupational, technical, or vocational program 05/04/2019 Sex and Gender Information Value Date Recorded Sex Assigned at Male 01/14/2021 6:38 AM EST Legal Sex Male 10:06 PM EDT Gender Identity Male 01/14/2021 6:38 AM EST Sexual Orientation Straight 01/14/2021 6: 38 AM EST Occupation Industry Job Start Date Job End Date Retired Not on file Not on file Not on file documented as of this encounter Plan of Treatment Upcoming Encounters Date Type Department Care Team (Late st Contact Info) Description 11/23/2025 8:00 AM EST Office Visit [facility] [address] [place] [address] 3rd Floor, [address] [place] [address] Elie Garzon MD [address] [place] [address] documented as of this encounter Results * NC Myocardial Perfusion Exercise Multiple (04/17/2023 11:47 AM EDT) Anatomical Region Laterality Modality Heart, Vascular Nuclear Medicine 04/18/2023 9:28 AM EDT Impressions 04/18/2023 9:36 AM EDT 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 The LVEF was calculated at approximately 49%. POS [id number] Narrative 04/18/2023 9:36 AM EDT COMPARISON: None DOSE: 10.6 mCi of technetium 99m sestamibi intravenously at rest and 32.6 mCi of technetium 99m sestamibi subsequently in the day during pharmacologic stress. SPECT images were obtained, gated at stress. FINDINGS: Left ventricular cavity size is felt to be within normal limits. On both the stress and rest portions of the examination there is moderately to severely diminished uptake in the inferior wall and inferoseptal segments and mildly diminished uptake in the apex, with the apex normalizing on the resting images but the inferior wall defect otherwise unchanged. Tracer distribution throughout the remainder of the anterior wall, septum, and lateral wall appears physiologic and essentially unchanged between stress and rest. There is mildly diminished myocardial thickening in the inferior wall with preserved thickening elsewhere. The LVEF was calculated at 49%. The TID ratio at 1.0. Procedure Note Guy Dennis MD - 04/18/2023 COMPARISON: None DOSE: 10.6 mCi of technetium 99m sestamibi intravenously at rest and 32.6mCi of technetium 99m sestamibi subsequently in the day duringpharmacologic stress. SPECT images were obtained, gated at stress. FINDINGS: Left ventricular cavity size is felt to be within normal limits. On boththe stress and rest portions of the examination there is moderately toseverely diminished uptake in the inferior wall and inferoseptal segmentsand mildly diminished uptake in the apex, with the apex normalizing on theresting images but the inferior wall defect otherwise unchanged. Tracerdistribution throughout the remainder of the anterior wall, septum, andlateral wall appears physiologic and essentially unchanged between stressand rest. There is mildly diminished myocardial thickening in the inferiorwall with preserved thickening elsewhere. The LVEF was calculated at 49%.The TID ratio at 1.0. 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 The LVEF was calculated at approximately 49%. POS [id number] Dasha Rowan MD CV NM CARDIAC Final Re sult documented in this encounter Visit Diagnoses Diagnosis Chest pain, unspecified type- Primary Chest pain, unspecified type documented in this encounter Additional Health Concerns Assessment Noted Time PHQ-2 Depression Total Score: 2 01/07/20 21 12:46 PM EST documented as of this encounter Care Teams Gardener Florist Relationship Specialty Start Date End Date Dasha Rowan MD [email or web address] PCP - General Family Medicine 04/10/23 03/21/25 Dasha Rowan MD [address] [place] [phone] [email or web address] PCP - General Family Medicine 03/22/25 documented as of this encounter Additional Source Comments The information contained in this document represents components of the legal health record. It is not the complete legal health record.[facility]
--- OUTSIDE RECORDS SUMMARY | 2025-08-25 08:24 | XMS_ITS | Encounter Summary ---
Author Organization [facility] Address [address] [place] [address] [place] [address] Phone Care Team Providers Care Gatehouse Attendant Name Role Phone Radha Chambers MD Primary Care Provider [phone] Dasha Rowan MD Primary Care Provider + Dasha Rowan MD Primary Care Provider + Reason for Referral * Outpatient Procedure - Closed Specialty Diagnoses / Procedures Referred By Contac t Referred To Contact Diagnoses Chest pain, unspecified type Procedures Stress Test Exercise Dasha Rowan MD Phone: tel: fax: mailto:[email or web address] Referral ID Status Reason Start Date Expiration Date Visits Re quested Visits Authorized [id number] Closed 03/25/2023 1 1 Encounter Details Date Type Department Care Team (Latest Contact Info) Description 03/25/2023 Transcribe Orders Virtual Department 30 [place] [address] Dasha Rowan MD [address] [place] [address] [phone] [email or web address] Chest pain, unspecified type (Primary Dx) [...] Description 11/23/2025 8:00 AM EST Office Visit [facility] [address] [place] [address] [address]rd Floor, [address] [place] [address] Elie Garzon MD [address] [place] [address] documented as of this encounter Results * Stress Test Exercise (04/10/2023 10:08 AM EDT) Max BP Systolic 172 mmHg [facility] Max BP Diastolic 80 mmHg [facility] Max HR 142 BPM [facility] Resting HR 83 BPM [facility] Resting BP Systolic 160 mmHg [facility] Resting BP Diastolic 100 mmHg [facility] Peak METS 11.3 METS [facility] Peak HR 141 BPM [facility] Anatomical Region Laterality Modality Heart Other 04/10/2023 8:57 AM EDT 04/10/2023 9:29 AM EDT Narrative 04/10/2023 1:34 PM EDT I [place] the findings, interpretation and conclusion of the supervising advanced practitioner. This was a nondiagnostic test. If there is concern for ischemia I would recommend a nuclear pharmacological stress test. Response to Stress The patient exercised for minutes seconds, achieving 11.3 METS at peak exercise. Baseline blood pressure was 160/100 mmHg, and baseline heart rate was 83 bpm. The patient achieved a peak heart rate of 141 bpm, which is% of their maximum predicted heart rate. REPORT - Pt exercised for 9:23 min on a CARLA protocol achieving 11.3 METS. Test terminated due to fatigue. Baseline resting HR was 73. Max heart rate achieved was 142 (97% MPHR). 1. EKG - Baseline EKG showed normal sinus rhythm. During exercise, pt went into a LBBB. 2. SYMPTOMS - Pt reported a slight discomfort in chest during exercise - pt states it felt like my lungs 3. EXERCISE PHYSIOLOGY - hypertensive at baseline. BP at baseline was 152/100, up to 182/80 at peak exercise and 162/102 on DC from stress lab. Excellent functional capacity for age. 4. ARRHYTHMIAS - occasional PVCs Conclusion - EKGs are nondiagnostic for ischemia due to LBBB. Recommend repeating stress test as a pharm nuclear stress test. Of note, pt was hypertensive throughout. [facility] SUPERVISOR with Dr. Covarrubias . us Dasha Rowan MD CV STRESS ORDERABLES Fin al Result documented in this encounter Visit Diagnoses Diagnosis Chest pain, unspecified type- Primary Chest pain, unspecified type documented in this encounter Additional Health Concerns Assessment Noted Time PHQ-2 Depression Total Score: 2 01/07/20 21 12:46 PM EST documented as of this encounter Care Teams Gatehouse Attendant Relationship Specialty Start Date End Date Radha Chambers MD [address] [place] [phone] [email or web address] PCP - General Family Medicine 03/10/21 04/09/23 Dasha Rowan MD [address] [place] [phone] [email or web address] PCP - General Family Medicine 04/10/23 03/21/25 Dasha Rowan MD [address] [place] [phone] [email or web address] PCP - General Family Medicine 03/22/25 documented as of this encounter Additional Source Comments The information contained in this document represents components of the legal health record. It is not the complete legal health record.[facility]
--- OUTSIDE RECORDS SUMMARY | 2025-08-25 08:25 | XMS_ITS | Clinical Summary ---
Author Organization [facility] Address [address] [place] [phone] Phone Care Team Providers Care Hoof Trimmer Name Role Phone Dasha Rowan MD Primary Care Provider + Allergies No known active allergies Medications sildenafiL (REVATIO) 20 mg tablet Take 20 mg by mouth 3 (three) times a day as needed (as needed). Active tadalafiL (CIALIS) 20 MG tablet TAKE ONE TABLET BY MOUTH EVERY DAY NEEDED FOR SEXUAL ACTIVITY. 02/02/2025 Active rosuvastatin (CRESTOR) 20 MG tablet Take 1 tablet by mouth once daily 90 tablet 07/23/2025 Active lisinopril (PRINIVIL,ZESTRI L) 10 MG tablet Take 1 tablet by mouth once daily 90 tablet 07/23/2025 Active Active Problems Problem Noted Date Diagnosed Date Palpitations 01/20/2025 Assessment & Plan (04/22/2025 3:29 PM EDT): Continues to have palpitations at times. His Holter monitor showed a 6 runs of SVT with longest being over 700 beats. He did go for cardiac catheterization to see if there were any occlusions. He is not on any AV juno blockers. He does use vagal maneuvers such as drinking ice water to break his fast heart rates when he does have them. Cardiac catheterization showed clean coronaries. I will have him follow-up with Dr. Garzon for possible SVT ablation. This patient is a very active young 79-year-old who may benefit from this. At this time he feels well and does not want any AV juno blockers to suppress his heart rate. Assessment & Plan (01/20/2025 2:41 PM EDT): He reports having had palpitations that happen a couple of times per week. He did have an episode this morning where he noticed his heart was racing and he felt his heart rate at 160 bpm. Typically his pulse is around 60-70 bpm. He is going to be going to [place] on February 07. Would like to get a 14-day MCT on him to see if this is atrial fibrillation versus SVT or what is causing his palpitations. He is not on any AV juno blockers. He is on lisinopril 10 mg daily for his blood pressure. If he is found to have atrial fibrillation we did discuss potentially starting on anticoagulation. He did have to have his nose cauterized for having epistaxis which has since resolved. If he was noted to have atrial fibrillation on his monitor we will call him and let him know whether he needs to start on anticoagulation or not. Diabetes 08/08/2023 Assessment & Plan (07/21/2024 8:48 AM EDT): A1c should be less than 7 I have also ordered him this lab test Assessment & Plan (12/09/2023 8:34 AM EST): A1c was 5.2 and LDL was over 140 we did talk about his diet Assessment & Plan (08/08/2023 8:43 AM EDT): A1c has to be less than 7 which it is Coronary arteriosclerosis 08/08/2023 Assessment & Plan (04/22/2025 3:29 PM EDT): He has a history for coronary artery disease based on imaging but no active CAD. LDL goal less than 70 mg/dL. SBP goal less than 130/80. He will continue lisinopril 10 mg daily and rosuvastatin 20 mg daily. Assessment & Plan (01/20/2025 2:41 PM EDT): He has a history of coronary disease based on imaging but no active CAD. LDL goal should be less than 70 mg/dL. He is on Crestor 20 mg daily. Most recent lipid panel shows his LDL at 77 mg/dL. He is encouraged follow heart healthy including low- sodium and exercise. Will continue to optimize cardiac risk factors. Blood pressure little elevated today 136/92 which she states is always the case when he comes to the doctor's office. Blood pressure is well-controlled at home. He is on lisinopril 10 mg daily which she will continue Assessment & Plan (07/21/2024 8:47 AM EDT): He does have coronary disease evidence based on prior imaging but no active CAD. His LDL goal should be less than 70 I have started him on Crestor 20 mg a day. Assessment & Plan (08/08/2023 8:43 AM EDT): I will investigate his inferior infarct that was on the nuclear study with an echo it is probably artifact Shortness of breath 08/08/2023 Assessment & Plan (04/22/2025 3:29 PM EDT): Denies any shortness of breath at this time. Assessment & Plan (07/21/2024 8:47 AM EDT): Currently asymptomatic Assessment & Plan (12/09/2023 8:34 AM EST): Asymptomatic at this time stress test was abnormal but echo was basically normal this is artifact in the inferior wall. Pure hypercholesterolemia 04/06/2020 Overview (04/06/2020): ASCVD risk score of 19% however this is likely due to age as he doesn't have any other risk factors (No HTN, No DM, non-smoker, no CKD). Has improved his LDL with lifestyle modifications to 151 and will continue with this. Encouraged more walking. Diet very good. Repeat lipid panel at [facility] in january 2021. Assessment & Plan (01/20/2025 2:39 PM EDT): Continue rosuvastatin 20 mg daily. Assessment & Plan (07/21/2024 8:48 AM EDT): LDL is going to be aggressively treated he already tried lifestyle modification which did essentially nothing we are going to start him on Crestor 20 Assessment & Plan (08/08/2023 8:42 AM EDT): I am going to retest his lipids and A1c at this point his LDL should be less than 70 mg/dL I will review this in 4 months time with the patient. More than likely he will need a statin agent. Benign prostatic hyperplasia with urinary obstru ction 05/03/2019 Assessment & Plan (08/08/2023 8:42 AM EDT): Currently asymptomatic Incomplete bladder emptying 06/15/2016 Benign prostatic hyperplasia with incomplete bladder emptying Overview (05/04/2019): No surgery, managed medically with Flomax and Proscar Assessment & Plan (12/09/2023 8:34 AM EST): Currently asymptomatic Need for prophylaxis against urinary tract infec tion Obstructive uropathy Overview (05/04/2019): medical management Recurrent UTI Overview (07/31/2019): On cefadroxil-based prophylaxis since 06/15/2019 At high risk for tick borne illness Overview (05/09/2019): [place] Resolved Problems Problem Noted Date Diagnosed Date Resolved Date Obesity 05/03/2019 05/04/2019 Encounters Date Type Department Care Team Description 08/12/2025 9:08 AM EDT - 08/12/2025 11:59 PM EDT Hospital Encounter [facility] [address] [place] [phone] Alan Saenz MD Discharge Disposition: Home or Self Care 08/12/2025 Transcribe Orders [facility] [address] [place] [address] Alan Saenz MD Erectile dysfunction, unspecified erectile dysfunction type (Primary Dx) 07/21/2025 [facility] [address], [address] [place] [address] Carlos Eduardo Gilbert, DO Medication Refill from Last 3 Months Immunizations Immunization Administration Dates Next Due COVID-19 (Pre-08/26) [place] Vaccine, [id number], P F 01/14/2021 Influenza High-Dose Trivalent Preservative Free IM 08/05/2019 Pneumococcal conjugate PCV13 01/04/2020 Td (adult),2 Lf Tetanus Toxoid, PF, Adsorbed 12/2019 Family History Medical History Relation Comments Alcohol abuse Brother 1 in recovery Coronary artery disease Brother 1 Valvular heart disease Brother 1 s/p Bipro sthetic AVR and 2V CABG age 74 COPD Brother 2 smoker Premature CHD Brother 2 CABG x 2 age 72 No Known Problems Brother 3 No Known Problems Brother 4 No Known Problems Daughter 1 No Known Problems Daughter 2 Alcohol abuse Father quit drinking ag e 55 COPD Father smoker Heart failure Father Cause of Other Mother No Known Problems Sister 1 No Known Problems Sister 2 Relation Status Comments Brother 1 Alive Brother 2 Alive Brother 3 Alive Brother 4 Alive Daughter 1 Alive Daughter 2 Alive Father (Age 78) Mother (Age 95) Sister 1 Alive Sister 2 Alive Social History Tobacco Use Types Packs/Day Years Used Date Smoking Tobacco: Former Cigarettes 1 5 1 - 08/04/1968 Smokeless Tobacco: Never Tobacco Cessation:Counseling Given: Not [...] with a working camera? Not on file Intimate Partner Violence Answer Date R ecorded Are you denied basic needs s uch as food, clothing, or medical care? No 03/31/2025 In the past 12 months have y ou been in a relationship with a person who hurts, threatens, or tries to control you? No 03/31/2025 Are you denied basic needs s uch as food, clothing, or medical care? No 03/31/2025 In the past 12 months have y ou been in a relationship with a person who hurts, threatens, or tries to control you? No 03/31/2025 Education Answer Date Recorded What is the [...] file Not on file Not on file Last Filed Vital Signs Vital Sign Reading Time Taken Comments Blood Pressure 140/90 04/22/2025 2:52 PM EDT Pulse 86 04/22/2025 2:52 PM EDT Temperature 36.1 C (97 F) 02/18/2024 6:24 PM EDT Respiratory Rate 12 03/31/2025 12:45 PM EDT Oxygen Saturation 93% 04/22/2025 2:52 PM EDT Inhaled Oxygen Concentration - - Weight 100.2 kg (221 lb) 04/22/2025 2:52 PM EDT Height 180.3 cm (5' 10.98 ) 04/22/2025 2:52 PM E DT Body Mass Index 30.84 04/22/2025 2:52 PM EDT Plan of Treatment Upcoming Encounters Date Type Department Care Team (Late st Contact Info) Description 11/23/2025 8:00 AM EST Office Visit [facility] [address] [place] [address] [address]rd Floor, [address] [place] [address] Elie Garzon MD [address] [place] [phone] [email or web address] Health Maintenance Due Date Last Done Comments HEPATITIS C SCREENING 1963 ZOSTER VACCINES (1 of 2) 1997 PNEUMOCOCCAL VACCINES (50+ years) (2 of 2 - PPSV23) 02/29/2020 01/04/2020 DEPRESSION SCREENING 01/06/2022 01/06/2021 RSV VACCINE (1 - 1-dose 75+ series) 2022 DIABETIC EYE EXAM 08/08/2023 HEMOGLOBIN A1C 06/01/2024 12/02/2023, 01/09/2021 INFLUENZA VACCINE (#1) 2025 08/05/2019 COVID-19 VACCINE (2 - 2024- season) 2025 01/14/2021 BLOOD PRESSURE 10/22/2025 04/22/2025 CREATININE LEVEL 03/24/2026 03/24/2025, , 09/03/2023, Additional history exists POTASSIUM LEVEL 03/24/2026 03/24/2025, 10/05, 01/09/2021, Additional history exists Adult Td,Tdap Booster 01/03/2030 01/04/2020 SMOKING STATUS SCREENING (Once After 26 Yrs) Completed 04/22/2025 HEPATITIS A VACCINES Aged Out No long er eligible based on patient's age to complete this topic HIB VACCINES Aged Out No longer eligi ble based on patient's age to complete this topic MENINGOCOCCAL VACCINES (ACWY) Aged Out No longer eligible based on patient's age to complete this topic MENINGOCOCCAL VACCINES (B) Aged Out N o longer eligible based on patient's age to complete this topic Medical Devices Not on file Procedures Procedure Name Priority Date/Time Associated Diagnosis Comments PSA DIAGNOSTIC (MONITORING) Routine 08/12/2025 9:11 AM EDT Erectile dysfunction, unspecified erectile dysfunction type BASIC METABOLIC PANEL Routine 03/24/2025 8:07 AM EDT Coronary arteriosclerosis Preop examination HEMOGLOBIN A1C Routine 12/02/2023 8:55 AM EST Coronary arteriosclerosis Shortness of breath from Last 3 Months or Most Recently Relevant to Health Maintenance Results * PSA diagnostic (monitoring) (08/12/2025 9:11 AM EDT) PSA 3.21 0 - 4.00 ng/mL [facility] Comment: Test Methodology Kehinde [id number] Patient results determined by assays using different manufacturers or methods may not be comparable. Blood 08/12/2025 9:11 AM EDT 08/12/2025 9:15 AM EDT us Alan Saenz MD LAB BLOOD ORDERABLES Final Result Performing Organization Address [facility] Co de Phone Number [address] [address] * (ABNORMAL) Basic metabolic panel (03/24/2025 8:07 AM EDT) SODIUM 136 133 - 146 mmol/L [facility] CHLORIDE 103 96 - 108 mmol/L [facility] POTASSIUM 4.9 3.3 - 5.1 mmol/L [facility] CO2 24 21 - 35 mmol/L [facility] BUN 22(H) 6 - 19 mg/dL [facility] CREATININE 1.10 0.5 - 1.5 mg/dL [facility] GLUCOSE 101(H) 70 - 99 mg/dL [facility] CALCIUM 9.0 8.4 - 10.3 mg/dL [facility] EGFR 69 >59 mL/min/1.7 3m2 [facility] Comment:Estimated glomerular filtration rate calculated using the CKD-EPI refit equation. ANION GAP 14 10 - 20 mmol/L [facility] Blood 03/24/2025 8:07 AM EDT 03/24/2025 8:09 AM EDT Destinee Lux MD LAB BLOOD ORDERABLES Final Resu lt Performing Organization Address City/[facility]/ZIP Co de Phone Number [address] [phone] * Hemoglobin A1c (12/02/2023 8:55 AM EST) HEMOGLOBIN A1C 5.2 4.3 - 5.8 % [facility] Blood 12/02/2023 8:55 AM EST 12/02/2023 8:57 AM EST us Carlos Eduardo A Arcoleo DO LAB BLOOD ORDERABLES Final Re sult [facility] Organization Address City/State/ZIP Co de Phone Number [address] [phone] from Last 3 Months or Most Recently Relevant to Health Maintenance Insurance MEDICARE POS PPO REPLACEMENT [place] [place] MED[place] POS PPO REPLACEMENT MEDICARE POS PPO REPLACEMENT [facility] [place] MED[place] POS PPO REPLACEMENT [facility] [place] MEDIC[place] POS PPO REPLACEMENT [facility] [place] MEDIC[place] POS PPO REPLACEMENT [facility] [place] MEDIC[place] POS PPO REPLACEMENT [place] [place] MED[place] POS PPO REPLACEMENT [place] [place] MEDIC[place] POS PPO REPLACEMENT Advance Directives For more information, please contact: [phone] (9AM - 5PM [place], Saturday-Saturday) * Full Code (Latest Code Status on File) Date Activated Date Inactivated Comments 03/31/2025 10:18 AM Question Answer Comments Code Status Confirmed With: Patient Care Teams Hoof Trimmer Relationship Specialty Start Date End Date Dasha Rowan MD [address] [place] [phone] [email or web address] PCP - General Family Medicine 03/22/25 Additional Source Comments The information contained in this document represents components of the legal health record. It is not the complete legal health record.[facility]
--- OUTSIDE RECORDS SUMMARY | 2025-08-25 08:25 | XMS_ITS | Encounter Summary ---
Author Organization [facility] Address [address] [facility] [address] [facility] [address] [place] [phone] Phone Care Team Providers Care Pneumatic Systems Operator Name Role Phone Dasha Rowan MD Primary Care Provider + Encounter Details Date Type Department Care Team (Late st Contact Info) Description 03/31/2025 Procedure Pass [facility] [address] [place] [address] Social History Tobacco Use Types Packs/Day Years [...] Description 11/23/2025 8:00 AM EST Office Visit [facility] [address] [facility] [address], [address] [place] [address] Elie Garzon MD [address] [place] [address] documented as of this encounter Visit Diagnoses Not on filedocumented in this encounter Additional Health Concerns Assessment Noted Time PHQ-2 Depression Total Score: 2 01/07/20 21 12:46 PM EST documented as of this encounter Care Teams Pneumatic Systems Operator Relationship Specialty Start Date End Date Dasha Rowan MD [address] [place] [address] [email or web address] PCP - General Family Medicine 03/22/25 documented as of this encounter Additional Source Comments The information contained in this document represents components of the legal health record. It is not the complete legal health record.[facility]
--- OUTSIDE RECORDS SUMMARY | 2025-08-25 08:25 | XMS_ITS | Encounter Summary ---
Author Organization [facility] Address [address] [place] [address] Care Team Providers Care Drawing Checker Name Role Phone Dasha Rowan Primary Care Provider [phone] Encounter Details Date Type Department Care Team (Late st Contact Info) Description 11/28/2023 Ophth Exam [facility] [address] [place] [id number] Omar Pacheco MD [address] [place] [address] Social History Tobacco Use Types Packs/Day Years Used Date Smoking Tobacco: Former Cigarettes 1 5 Smokeless Tobacco: Never Alcohol Use Standard Drinks/Week Comments Not Currently 0 (1 standard drink = 0.6 oz pur e alcohol) Sex and Gender Information Value Date Recorded Sex Assigned at Male 10/31/2023 3:35 PM EST Legal Sex Male 3:22 PM EST Gender Identity Male 10/31/2023 3:35 PM EST Sexual Orientation Straight 11/07/2023 10 :30 AM EST documented as of this encounter Plan of Treatment Not on file documented as of this encounter Visit Diagnoses Not on filedocumented in this encounter Care Teams Drawing Checker Relationship Specialty Start Date End Date Dasha Rowan [address] [place] [phone] PCP - General Family Medicine 10/31/23 documented as of this encounter
== END 2025-08-25 09:02 | disposition home or self-care (01) ==
LOC: HO.HUSH 08:16
PROVIDERS: PCP Family Medicine; Visit Provider Urology
DX: N40.1 Benign prostatic hyperplasia with lower urinary tract symptoms (principal); N13.8 Other obstructive and reflux uropathy; R33.9 Retention of urine, unspecified; Z13.9 Encounter for screening, unspecified
CPT/HCPCS: 99214; G2211